=== PATIENT | male | born 1965 | race Caucasian/White ===

== ENCOUNTER 2025-05-24 06:57 | Emergency (ER) | payer BC, SELFPAY ==
--- NOTE | 2025-05-24 09:27 | ED.GENMED ---
History of Present Illness
General
Chief Complaint: Dizziness
Source: patient
Exam Limitations: none
Time Seen by Provider: 05/24/25 08:15
Nursing documentation reviewed up to this point in time: agreed with
History of Present Illness
History of Present Illness:
59-year-old male with a history of kidney cancer treated with nephrectomy in 2018, HLD, GERD, Anxiety. He presents with dizziness, nausea, and a 'mild' headache 'not really pain, just like foggy in my head.' Symptoms began yesterday with nausea,
followed by dizziness after dinner. Overnight, he experienced episodes where the room felt like it was going up and down. This morning, he experienced dizziness, vomiting upon arrival at the emergency department. He reports taking ondansetron
without relief of the nausea. The patient experiences occasional nausea since his nephrectomy but usually finds relief with ondansetron. He denies chest pain, shortness of breath, recent illnesses, or head injuries. The patient feels imbalanced when
walking and occasionally needs support for stability.
Past History
Past History
ED Past Medical History: Cancer (Renal) and HTN
ED Past Surgical History: Urological (Nephrectomy)
Social History
Tobacco: Non-smoker
Alcohol: None
Personal:
Living: with family
Employment: Retired
Review of Systems
Review of Systems
Allergies reviewed?: Yes
All Other Systems: ROS reviewed and negative except as documented in HPI and ROS
Constitutional: Denies fever or fatigue
EENT: Denies sore throat
Respiratory: Denies cough or trouble breathing
Cardiac: Denies chest pain
ABD/GI: Reports nausea and vomiting; Denies abdominal pain, diarrhea or anorexia
: Denies dysuria or difficulty voiding
Musculoskeletal: Reports no symptoms
Skin: Reports no symptoms
Neurological: Reports dizzy; Denies weakness or numbness
Phy Exam
Physical Exam
Physical Exam:
GENERAL: No acute distress. A&Ox3.
CONSTITUTIONAL: Afebrile.
EYES: clear, conjunctivae normal, EOMs intact, no nystagmus.
ENMT: moist mucus membranes, Pharynx nl
RESPIRATORY: Regular respirations, nonlabored, lungs clear.
CARDIOVASCULAR: Regular rate and rhythm, no murmurs, no rubs.
GI: Soft, nontender, normal BS
MUSCULOSKELETAL: Moves with ease. Well perfused.
SKIN: Warm, dry, pink
PSYCH: Normal mood and affect. Well kept, interactive and appropriate
NEUROLOGIC: Awake, alert and oriented. Speech clear. Cranial nerves II through XII intact. [id number] intact strength equal throughout. Ambulates well with steady gait but his heel-to-toe walking is not steady. No focal neurological deficits
Course
Orders/Labs/Results
Orders:
Orders
05/24/25 08:43
CT Head W/o Iv Contrast Urgent
Comment:
Reason For Exam: imbalance, nausea
05/24/25 09:26
Physical Therapy Consult [Pt Eval And Treat] Urgent
Treatment: Vestibular evaluation
Activity Level: As Tolerated
05/24/25 09:44
Complete Blood Count/With Diff Urgent
Comprehensive Metabolic Panel Urgent
05/24/25 09:47
Ondansetron Orally Disint [Zofran Odt (Orally Disintegrating)] 4 mg PO NOW STA
Abnormal Lab Results
05/24/25
09:44
WBC 12.8 H 10^3/uL
(4.8-10.8)
MCH 31.1 H pg
(27.0-31.0)
Abs Immat Gran (auto) 0.1 H 10^3/uL
(0-0.05)
Absolute Neuts (auto) 10.8 H 10^3/uL
(1.4-6.5)
Neutrophils % 84.5 H %
(42.2-75.2)
Lymphocytes % 9.4 L %
(20.5-51.1)
Glucose 120 H mg/dl
(70-99)
05/24/25 09:44
05/24/25 09:44
Vital Signs
Initial and Last Documented VS:
Initial Vital Signs
Temp Pulse Resp Pulse Ox
98.0 F 67 16 100
05/24/25 07:03 05/24/25 07:03 05/24/25 07:03 05/24/25 07:03
Last Documented Vital Signs
Temp Pulse Resp BP Pulse Ox
98.0 F 67 16 131/74 100
05/24/25 07:03 05/24/25 07:03 05/24/25 07:03 05/24/25 10:56 05/24/25 09:35
MDM/Problems Addressed
Differential Diagnosis Includes:
BPPV, labyrinthitis, vestibular neuritis, CVA
MDM/Problems Addressed:
59-year-old male with a history of kidney cancer treated with nephrectomy in 2018, HLD, GERD, Anxiety. He presents with dizziness, nausea, and a 'mild' headache 'not really pain, just like foggy in my head.' Symptoms began yesterday with nausea,
followed by dizziness after dinner. Overnight, he experienced episodes where the room felt like it was going up and down. This morning, he experienced dizziness, vomiting upon arrival at the emergency department. He reports taking ondansetron
without relief of the nausea. The patient experiences occasional nausea since his nephrectomy but usually finds relief with ondansetron. He denies chest pain, shortness of breath, recent illnesses, or head injuries. The patient feels imbalanced when
walking and occasionally needs support for stability.
9:[address] normal
P/T consulted for Vestibular eval
10:30 a.m.
P/T in and evaluation consistent with BPPV
Rx for f/u P/T evaluation on Sat (2 days) provided
Rx for Meclizine and Zofran sent to pt pharmacy
He states he is feeling a little better after P/T eval.
Pt ambulated out with normal gait at discharge
*Pulse Oximetry
SaO2: 100
Oxygen Mode of Delivery: Room air
Patient hypoxic: no
*Critical Care Note
Total Time (30-74mins, 75-104mins- exclusive of procedures): Not Applicable
ED Attending Note
-
Portions of this chart may have been created with voice recognition software.� Occasional wrong word or��sound alike� substitutions may have occurred due to the inherent limitations of voice recognition software.
Discharge Plan
Departure
Patient Disposition: Home (Routine Discharge)
Date of Disposition: 05/24/25
Time of Disposition: 10:54
Patient with high blood pressure during this ER visit?: No
Condition: Good
Discharge Problem:
Benign paroxysmal positional vertigo
Instructions: Vertigo (a Type of Dizziness) (DC)
Prescriptions:
New
meclizine 50 mg tablet
50 mg PO BID PRN (Reason: dizziness) Qty: 14 0RF
ondansetron 4 mg tablet,disintegrating
4 mg PO Q8H PRN (Reason: nausea and vomiting) 5 Days Qty: 14 0RF
Referrals:
Gabo Mcclain MD [Family Provider, Internal Medicine] - As needed
Activity Restrictions/Additional Instructions:
As we discussed, keep P/T appt for Saturday
I sent a prescription to your pharmacy for Meclizine to use for dizziness and Zofran to use for nausea
Interventions
Interventions:
*Risk Screen - Suicide Last Done: 05/24/25 10:59
*General Assessment Last Done: 05/24/25 07:03
*Neglect/Abuse Screening Last Done: 05/24/25 07:03
*ED- Fall Risk Assessment Last Done: 05/24/25 10:59
*ED COVID-19 Vaccine History Last Done: 05/24/25 10:59
*ED Influenza Vaccine History Last Done: 05/24/25 10:59
*Nursing Disposition Last Done: 05/24/25 10:59
ED- Cardiac Assessment Last Done: 05/24/25 10:59
ED- Neurological Assessment Last Done: 05/24/25 10:59
Discharge Date and Time
Discharge Date/Time: 05/24/25 11:00
Print Language: BENGALI
[2025-05-24 09:55] LABS: Hematocrit 42.9 % (39.0-52.0); Hemoglobin 14.7 g/dL (13.0-18.0); Mean Corp Hgb Conc. 34.3 g/dL (33.0-37.0); Mean Corpuscular Volume 90.9 fL (80.0-94.0); Nucleated Red Blood Cells % 0 % (-); Platelet Count 237 10^3/uL (130-400); Red Cell Dist. Width 13.1 % (11.5-14.5)
[2025-05-24] MEDS: ZOFRAN ODT (ORALLY DISINTEGRATING) 4 MG PO (10:12)
[2025-05-24 10:32] VITALS: BP 122/85; BP 126/78; PULSE 62
[2025-05-24 10:34] LABS: ALT (SGPT) 29 U/L (0-50); AST (SGOT) 29 U/L (17-59); Albumin 4.7 g/dl (3.5-5.0); Alkaline Phosphatase 118 U/L (38-126); Blood Urea Nitrogen 19 mg/dl (9-20); Calcium 9.9 mg/dl (8.4-10.2); Carbon Dioxide 27 mmol/L (22-30); Chloride 104 mmol/L (98-107); Glucose 120 mg/dl (70-99); Potassium 4.8 mmol/L (3.5-5.1); Sodium 137 mmol/L (135-145); Total Protein 7.9 g/dl (6.3-8.2); eGFR > 60.00
[2025-05-24 10:56] VITALS: BP 131/74
== END 2025-05-24 11:00 | disposition home or self-care (01) ==
LOC: EMR 06:57
PROVIDERS: Registered Nurse; EMERGENCY PHYSICIAN Emergency Medicine; FAMILY PHYSICIAN Internal Medicine
DX: H81.10 Benign paroxysmal vertigo, unspecified ear (principal); E78.00 Pure hypercholesterolemia, unspecified; K21.9 Gastro-esophageal reflux disease without esophagitis; F41.9 Anxiety disorder, unspecified; I10 Essential (primary) hypertension; Z85.528 Personal history of other malignant neoplasm of kidney; Z90.5 Acquired absence of kidney
CPT/HCPCS: 99284; 70450; 80053; 85025; 97112

== ENCOUNTER 2025-05-27 06:24 | Outpatient (RCR) | payer BC, SELFPAY | END 2025-05-27 23:59 | disposition home or self-care (01) | LOC: RPT 06:24 | PROVIDERS: ATTENDING PHYSICIAN Registered Nurse; FAMILY PHYSICIAN Internal Medicine | DX: H81.11 Benign paroxysmal vertigo, right ear (principal); Z73.6 Limitation of activities due to disability | CPT/HCPCS: 97162 ==